=== PATIENT | female | born 1980 | race Two or more races ===

== ENCOUNTER 2016-07-28 18:55 | Emergency (ER) | payer SELFPAY ==
[2016-07-28 19:05] VITALS: BP 157/92; BMI 39.3
--- NOTE | 2016-07-28 19:33 | DR.GENAD ---
HPI - PCP Primary Care Physician: [id number] - HPI Comment HPI Comment: SYMTOMS GETTING WORSE. DID NOT TAKE ANY MEDS BEFORE COMING. - Complaint/Symptoms Chief Complaint Doctors Comments: FEVER, COUGH, CONGESTION, SORETHROAT AND HEADACHE TIMES 2 DAYS. SOB TODAY. Chief Complaint:: pt started coughing and running a fever 2 days ago pt c/o that it hurts too breathe - Nurses notes reviewed Nurses Notes Review: Yes - Source History Provided: Patient - Mode of Arrival Mode of Arrival: Ambulatory - Timing Onset of Chief Complaint: 07/26/16 Came on: Suddenly - Duration Duration: Constant Duration: Days - Severity Severity: Moderate PMH - PMH Past Medical History: No Past Surgical History: Yes Surgical History: - Family History History of Family Medical Conditions: No - Social History Does any household member use tobacco: No Do you use any recreational Drugs:: No Lives With: Family Lives Where: Home - infectious screening In the last 2 months have you had wt loss of >10#?: NO Have you had fever, night sweats or hemotysis?: No Have you traveled outside the country in the last 6 months?: No Isolation: Standard ROS - Review of Systems Constitutional: Fever, Weakness, Fatigue. negative: Chills, Diaphoresis Eyes: No Symptoms Reported. negative: Eye Pain, Discharge ENTM: Throat Pain. negative: Ear Pain, Nose Discharge, Nose Congestion Respiratoy: Productive Cough, Short of Breath, Wheezing. negative: Hemoptysis Cardiovascular: No Symptoms Reported. negative: Chest Pain Gastrointestinal/Abdominal: Vomiting. negative: Abdominal Pain, Nausea Genitourinary: No Symptoms Reported. negative: Dysuria, Frequency, Hematuria Neurological: Headache, Weakness, Dizziness Musculoskeletal: Muscle Pain Integumentary: No Symptoms Reported Hematologic/Lymphatic: No Symptoms Reported Endocrine: No Symptoms Reported All Other Systems: Reviewed and Negative PE - Vital Signs Vitals: Temperature 101 F Pulse Rate 109 Respiratory Rate 26 Blood Pressure 157/92 O2 Sat by Pulse Oximetry 98 - General Limitations: No Limitations General Appearance: Alert - Head Head Exam: Normal Inspection - Eyes Eye exam: Normal Appearance - ENT ENT Exam: Normal External Ear Exam, TM's Normal Bilaterally. negative: Normal Oropharynx (THROAT SLIGHTLY HYPEREMIC.) External Ear Exam: Normal External Inspection TM/Canal Exam: Bilateral Normal Nose Exam: Normal Nose Exam Mouth Exam: Normal Inspection Throat Exam: Tonsillar Erythema. negative: Tonsillomegaly, Tonsillar Exudate - Neck Neck Exam: Trachea Midline. negative: Tenderness, Meningismus, Lymphadenopathy - Chest Chest Inspection: Symmetric Chest Wall Rise - Respiratory Respiratory Exam: Respiratory Distress Respiratory Exam: Bilateral Wheezing, Bilateral Rhonchi, Upper Rhonchi, Lower Wheezing, Lower Rhonchi - Cardiovascular Cardiovascular Exam: Regular Rate, Normal Rhythm, Normal Heart Sounds - Abdominal Exam Abdominal Exam: Normal Bowel Sounds, Soft. negative: Tenderness - Extremities Extremities Exam: Normal Inspection - Back Back Exam: Normal Inspection - Neurologic Neurological Exam: Alert, Oriented X3 - Psychiatric Psychiatric Exam: Normal Affect, Normal Mood - Skin Skin Exam: Normal Color MDM - Additional Information Additional Information Obtained From: Family - Differential Diagnosis Differential Diagnosis: BRONCHITIS, PNEUMONIA, SINUSITIS, STREP PHARYNGITIS Course - Treatment Treatment: SEE ORDERS. BICILLIN IM IN ED AND T3 AND TESSON PEELES PO IN ED. - Education/Counseling Education/Counseling: Patient, Family, Education Educated On: Treatment, Diagnosis, Needs for Follow Up ROR - Labs Reviewed Laboratory Results Reviewed?: Yes Result Diagrams: 07/28/16 19:52 07/28/16 19:52 Laboratory: WBC 4.3 X10^3/uL (3.6-10.0) 07/28/16 19:52 RBC 4.93 X10^6/uL (3.5-5.4) 07/28/16 19:52 Hgb 12.4 g/dL (12.0-16.0) 07/28/16 19:52 Hct 37.3 % (36.0-47.0) 07/28/16 19:52 MCV 75.8 fL (80.0-100.0) L 07/28/16 19:52 MCH 25.2 pg (27.0-34.0) L 07/28/16 19:52 MCHC 33.2 g/dL (33.0-35.0) 07/28/16 19:52 RDW 15.8 % (11.6-16.5) 07/28/16 19:52 Plt Count 196 X10^3/uL (150.0-450.0) 07/28/16 19:52 Plt Count Comment Adequate (ADEQUATE) 07/28/16 19:52 MPV 8.5 fL (7.4-11.0) 07/28/16 19:52 Neut % 55.8 % (42.0-75.0) 07/28/16 19:52 Lymph % 26.3 % (21.0-51.0) 07/28/16 19:52 [place] % 14.1 % (0.0-13.0) H 07/28/16 19:52 Eos % 3.2 % (0.9-2.9) H 07/28/16 19:52 Baso % 0.6 % (0.2-1.0) 07/28/16 19:52 Neut # 2.4 x10^3/uL (2.2-4.8) 07/28/16 19:52 Lymph # 1.1 X10^3/uL (1.3-2.9) L 07/28/16 19:52 [place] # 0.6 x10^3/uL (0.3-0.8) 07/28/16 19:52 Eos # 0.1 x10^3/uL (0.0-0.2) 07/28/16 19:52 Baso # 0.0 X10^3/uL (0.0-0.1) 07/28/16 19:52 Absolute Nucleated RBC 0.0 /100WBC 07/28/16 19:52 Plt Morphology Comment Normal (NORMAL) 07/28/16 19:52 RBC Morphology Normal (NORMAL) 07/28/16 19:52 Sodium 137 mmol/L (136-145) 07/28/16 19:52 Corrected Sodium 138 mmol/L (136-145) 07/28/16 19:52 Potassium 3.8 mmol/L (3.5-5.1) 07/28/16 19:52 Chloride 103 mmol/L (98-107) 07/28/16 19:52 Carbon Dioxide 26.4 mmol/L (21-32) 07/28/16 19:52 BUN 9 mg/dL (7-18) 07/28/16 19:52 Creatinine 1.05 mg/dL (0.55-1.02) H 07/28/16 19:52 Est GFR (MDRD) Af Amer > 60 (>60) 07/28/16 19:52 Est GFR (MDRD) Non-Af > 60 (>60) 07/28/16 19:52 Glucose 129 mg/dL (65-99) H 07/28/16 19:52 Calcium 8.6 mg/dL (8.5-10.1) 07/28/16 19:52 Corrected Calcium TNP 07/28/16 19:52 Total Bilirubin 0.20 mg/dL (0.2-1.0) 07/28/16 19:52 AST 36 Units/L (15-37) 07/28/16 19:52 ALT 74 Units/L (12-78) 07/28/16 19:52 Alkaline Phosphatase 75 Units/L (46-116) 07/28/16 19:52 Total Protein 7.9 g/dL (6.4-8.2) 07/28/16 19:52 Albumin 3.5 g/dL (3.4-5.0) 07/28/16 19:52 Globulin 4.4 g/dL (2.5-4.5) 07/28/16 19:52 Albumin/Globulin Ratio 0.8 Ratio (1.1-2.1) L 07/28/16 19:52 Specimen Type Clean catch urine 07/28/16 19:54 Urine Color Yellow (YELLOW) 07/28/16 19:54 Urine Appearance Clear (CLEAR) 07/28/16 19:54 Urine pH 7.0 (5.0 - 8.0) 07/28/16 19:54 Ur Specific [place] 1.005 (1.000-1.030) 07/28/16 19:54 Urine Protein Negative (NEGATIVE) 07/28/16 19:54 Urine Glucose (UA) Negative (NEGATIVE) 07/28/16 19:54 Urine Ketones Negative (NEGATIVE) 07/28/16 19:54 Urine Occult Blood 1+ (NEGATIVE) 07/28/16 19:54 Urine Nitrite Negative (NEGATIVE) 07/28/16 19:54 Urine Bilirubin Negative (NEGATIVE) 07/28/16 19:54 Urine Urobilinogen Normal (NORMAL) 07/28/16 19:54 Ur Leukocyte Esterase 1+ (NEGATIVE) 07/28/16 19:54 Urine RBC 0-2 /HPF (NEGATIVE) 07/28/16 19:54 Urine WBC 0-2 /HPF (NEGATIVE) 07/28/16 19:54 Ur Squamous Epith Cells Few /HPF (NEGATIVE) 07/28/16 19:54 Urine Bacteria Trace /HPF (NEGATIVE) 07/28/16 19:54 Ur Culture Indicated? No/not indicated 07/28/16 19:54 Streptococcus Screen Positive (NEGATIVE) A 07/28/16 19:54 - XRAY XRAY Interpreted by: Radiologist XRAY Findings: REPORT NOTED - Diagnosis Discharge Problem: Bronchitis, Strep pharyngitis - Discharge Plan Disposition: HOME, SELF-CARE Condition: Stable Prescriptions: Acetaminophen with Codeine [Tylenol/Codeine #3 300-30 mg] 1 tab PO Q4-6H PRN # 15 tab PRN Reason: Pain Azithromycin [ZITHROMAX Tab 250 mg *] 1 dose PO DAILY #6 tab Benzonatate [TESSALON PERLES *] 200 mg PO TID PRN #21 cap PRN Reason: Cough - Follow ups/Referrals Follow ups/Referrals: NFD,None [Primary Care Provider] - 3 days - Instructions Instructions: Strep Throat, Community-Acquired Pneumonia, Adult, [id number] Additional Instructions: RETURN TO ED IF WORSE,
[2016-07-28 20:04] LABS: BILIRUBIN,URINE NEGATIVE (NEGATIVE); BLOOD/HEMOGLOBIN,URINE 1+ (NEGATIVE); GLUCOSE, URINE NEGATIVE (NEGATIVE); KETONES,URINE NEGATIVE (NEGATIVE); LEUKOCYTE ESTERASE ,URINE 1+ (NEGATIVE); NITRITES,URINE NEGATIVE (NEGATIVE); PROTEIN,URINE NEGATIVE (NEGATIVE); UROBILINOGEN,URINE NORMAL (NORMAL)
[2016-07-28 20:07] LABS: BASOPHILS % (AUTO) 0.6 % (0.2-1.0); EOSINOPHILS # (AUTO) 0.1 x10^3/uL (0.0-0.2); EOSINOPHILS % (AUTO) 3.2 % (0.9-2.9); HEMATOCRIT 37.3 % (36.0-47.0); HEMOGLOBIN 12.4 g/dL (12.0-16.0); LYMPHOCYTES # (AUTO) 1.1 X10^3/uL (1.3-2.9); LYMPHOCYTES % (AUTO) 26.3 % (21.0-51.0); MEAN CORPUSCULAR HEMOGLOBIN 25.2 pg (27.0-34.0); MEAN CORPUSCULAR HGB CONC 33.2 g/dL (33.0-35.0); MEAN CORPUSCULAR VOLUME 75.8 fL (80.0-100.0); MEAN PLATELET VOLUME 8.5 fL (7.4-11.0); MONOCYTES # (AUTO) 0.6 x10^3/uL (0.3-0.8); MONOCYTES % (AUTO) 14.1 % (0.0-13.0); NEUTROPHILS # (AUTO) 2.4 x10^3/uL (2.2-4.8); NEUTROPHILS % (AUTO) 55.8 % (42.0-75.0); PLATELET COUNT 196 X10^3/uL (150.0-450.0); RED BLOOD COUNT 4.93 X10^6/uL (3.5-5.4); RED CELL DISTRIBUTION WIDTH 15.8 % (11.6-16.5); WHITE BLOOD COUNT 4.3 X10^3/uL (3.6-10.0)
[2016-07-28 20:17] LABS: APPEARANCE,URINE CLEAR (CLEAR); BACTERIA,URINE TRACE /HPF (NEGATIVE); COLOR,URINE YELLOW (YELLOW); RBC,URINE 0-2 /HPF (NEGATIVE); SQUAMOUS EPITHELIAL CELL,UR FEW /HPF (NEGATIVE)
[2016-07-28 20:22] LABS: ALANINE AMINOTRANSFERASE 74 Units/L (12-78); ALBUMIN 3.5 g/dL (3.4-5.0); ALKALINE PHOSPHATASE 75 Units/L (46-116); ASPARTATE AMINO TRANSFERASE 36 Units/L (15-37); BLOOD UREA NITROGEN 9 mg/dL (7-18); CALCIUM 8.6 mg/dL (8.5-10.1); CARBON DIOXIDE 26.4 mmol/L (21-32); CHLORIDE 103 mmol/L (98-107); COR NA(FOR HYPERGLY) 138 mmol/L (136-145); CREATININE 1.05 mg/dL (0.55-1.02); GLUCOSE 129 mg/dL (65-99); SODIUM 137 mmol/L (136-145); TOTAL PROTEIN 7.9 g/dL (6.4-8.2); eGFR BLACK RACES > 60 (>60); eGFR NON BLACK RACES > 60 (>60)
[2016-07-28 20:31] LABS: PLATELET MORPHOLOGY COMMENT NORMAL (NORMAL)
[2016-07-28] MEDS ORDERED: BICILLIN L-A IM ONE ×2 (20:52→20:55)
[2016-07-28] MEDS ORDERED: TYLENOL #3 TAB (W/CODEINE) PO ONE ×2 (21:17→21:20)
[2016-07-28] MEDS ORDERED: TESSALON PERLES PO ONE (21:17)
--- NOTE | 2016-07-28 21:20 | RAD ---
Chest, one view Indication: Chest pain, cough, fever. Comparison: None Findings: There is peribronchial and perihilar interstitial thickening, without focal infiltrate or significant pleural effusion. The heart size is normal. The bony thorax is unremarkable. Impression: Findings suggesting bronchitis or viral lower airways disease. No convincing bronchopneu monia. Reported By:
== END 2016-07-28 21:25 | disposition home or self-care (01) ==
LOC: ER 19:08
DX: J40 Bronchitis, not specified as acute or chronic (principal); J02.0 Streptococcal pharyngitis
CPT/HCPCS: 36415; 71010; 80053; 81001; 85025; 87880; 96372; 99282; 99283; J0570